=== PATIENT | male | born 1990 | race Caucasian/White ===

== ENCOUNTER 2022-06-13 17:08 | Emergency (ER) | payer MEDICAID, OTHER, SELFPAY ==
[~2022-06-13 17:08] MED LIST: Lactated Ringer's 1,000 ML BAG ONE
[2022-06-13 18:26] LABS: ALT (SGPT) 39 U/L (8-55); AST (SGOT) 25 U/L (5-34); Albumin 4.5 g/dL (3.5-5.0); Alkaline Phosphatase 114 U/L (40-110); Anion Gap 19 mmol/L (10-20); BUN (Urea Nitrogen) 22 mg/dL (8.9-20.6); Bilirubin, Total 0.8 mg/dL (0.2-1.2); CK (CPK) 171 U/L (30-200); Calc. Creatinine Clearance 0 mL/min (70-130); Calcium 10.2 mg/dL (7.8-10.44); Carbon Dioxide 24 mmol/L (22-29); Chloride 96 mmol/L (98-107); Estimated GFR 46; Globulin 3.2 g/dL (2.4-3.5); Glucose 97 mg/dL (70-105); Potassium 3.5 mmol/L (3.5-5.1); Protein, Total 7.7 g/dL (6.0-8.3); Sodium 135 mmol/L (136-145)
[2022-06-13 18:39] LABS: Giant Platelets SLIGHT; Hemoglobin 15.3 g/dL (14.0-18.0); Large Platelets SLIGHT; Lymphocytes 8 % (21-51); MDiff Complete? YES; Mean Corpuscular HGB CONC 33.4 g/dL (32.0-36.0); Mean Corpuscular Hemoglobin 28.7 pg (27.0-31.0); Mean Platelet Volume 14.7 fL (7.4-10.4); Myelocyte 1 % (0-0); Neutrophil 90 % (42-75); Platelet Count 188 thou/uL (130-400); Platelet Morphology Comment Appears Adequate; RBC Morphology Normal; Reactive Lymphocytes 1 % (0-10); Red Blood Cell (RBC) Count 5.33 mill/uL (4.70-6.10)
[2022-06-13] MEDS ORDERED: Lactated Ringer's 1,000 ML ONE (19:13)
[2022-06-13] MEDS ORDERED: Nicotine 7 MG PATCH ONE (20:04)
[2022-06-13] MEDS ORDERED: Ondansetron ODT 4 MG TAB ONE (20:23)
[2022-06-13 20:59] LABS: ALT (SGPT) 37 U/L (8-55); AST (SGOT) 23 U/L (5-34); Albumin 4.3 g/dL (3.5-5.0); Alkaline Phosphatase 109 U/L (40-110); Anion Gap 18 mmol/L (10-20); BUN (Urea Nitrogen) 20 mg/dL (8.9-20.6); Bilirubin, Total 0.8 mg/dL (0.2-1.2); Calc. Creatinine Clearance 0 mL/min (70-130); Carbon Dioxide 23 mmol/L (22-29); Chloride 99 mmol/L (98-107); Estimated GFR 60; Globulin 3.2 g/dL (2.4-3.5); Glucose 98 mg/dL (70-105); Potassium 4.2 mmol/L (3.5-5.1); Protein, Total 7.5 g/dL (6.0-8.3); Sodium 136 mmol/L (136-145)
[2022-06-13 21:47] LABS: Bilirubin Negative (Negative); Blood, Urine Negative (Negative); Clarity Clear (Clear); Glucose, Urine (Dipstick) Negative (Negative); Ketone, Urine Negative (Negative); Leukocyte Negative (Negative); Nitrite Negative (Negative); Protein, Urine (Dipstick) Negative (Neg-Trace); Specific Gravity, Urine 1.003 (1.002-1.036); Urobilinogen 0.2 mg/dL (Less than 2)
== END 2022-06-13 22:12 | disposition home or self-care (01) ==
LOC: MADERS 17:08
DX: E86.0 Dehydration (principal); N17.9 Acute kidney failure, unspecified; D72.829 Elevated white blood cell count, unspecified; H65.91 Unspecified nonsuppurative otitis media, right ear; I10 Essential (primary) hypertension; F17.200 Nicotine dependence, unspecified, uncomplicated
CPT/HCPCS: 71045; 80053; 81003; 82550; 83605; 83690; 85025; 87040; 93005; 94760; 96360; 96361; J7120; Q0162